=== PATIENT | male | born 1955 | race Hispanic/Latino ===

== ENCOUNTER → 2019-02-17 | Outpatient (CLI) | payer MEDICAID | END | disposition home or self-care (01) | LOC: RAH 11:06 | PROVIDERS: ATTEND Internal Medicine Gastroenterology | DX: B18.2 Chronic viral hepatitis C (principal); I71.4 Abdominal aortic aneurysm, without rupture | CPT/HCPCS: 76700 ==

== ENCOUNTER 2021-02-14 12:00 | Inpatient (IN) | payer MEDICAID ==
[~2021-02-14] VITALS: Ht 170.2 cm; Wt 63.2 kg
[2021-02-18 13:05] LABS: EOSINOPHILS % (AUTO) 3.3 % (0.0-8.0); HEMATOCRIT 32.7 % (42-54); LYMPHOCYTES % (AUTO) 19.8 % (21.0-51.0); MEAN CORPUSCULAR HEMOGLOBIN 26.9 pg (27.0-33.0); MEAN CORPUSCULAR VOLUME 89.8 fL (79-99); MONOCYTES % (AUTO) 9.5 % (3.0-13.0); NEUTROPHILS % (AUTO) 66.1 % (40.0-77.0); PLATELET COUNT (AUTO) 261 K/uL (130-400); RED BLOOD CELL COUNT(AUTO) 3.64 MIL/uL (4.50-6.20); RED CELL DISTRIBUTION WIDTH 15.5 % (11.0-15.5)
[2021-02-18 13:14] LABS: ABG BASE EXCESS -5.9 mmol/L (-2.0-3.0); ABG HCO3 18.4 mmol/L (21.0-28.0); ABG OXYGEN SATURATION 97.8 % (95.0-99.0); ABG PCO2 33 mmHg (35-48)
[2021-02-18 13:16] LABS: INR 1.04 (0.85-1.15); PROTHROMBIN TIME 11.3 SEC (9.6-11.6)
[2021-02-18 13:17] LABS: PARTIAL THROMBOPLASTIN TIME 27.1 SEC (26.3-35.5)
[2021-02-18 13:18] LABS: HEMOGLOBIN A1C 4.5 % (4.0-6.0)
[2021-02-18 13:29] LABS: ALBUMIN 3.2 g/dL (3.5-5.0); BILIRUBIN,TOTAL 0.2 mg/dL (0.2-1.0); POTASSIUM 3.9 mmol/L (3.5-5.1)
[2021-02-18 16:12] VITALS: BP 105/65
[2021-02-18] MEDS ORDERED: AEC81 PO (17:07)
[2021-02-18] MEDS ORDERED: BUPROPION HCL ER PO (17:07)
[2021-02-18] MEDS ORDERED: ATOR20TA65 PO (17:07)
[2021-02-18] MEDS ORDERED: AMLO-257 PO (17:07)
[2021-02-18] MEDS ORDERED: METO25TA6 PO (17:07)
[2021-02-21] VITALS (16 sets, daily range): BP systolic 93–299; BP diastolic 50–297
[2021-02-21] MEDS: CEFAZOLIN SODIUM 1 GM VIAL IVP SCH ×2 (06:00→08:10)
[2021-02-21] MEDS ORDERED: EPINEPHRINE PF 1MG AMP 10 MG in 0.9% NACL 250ML 240 ML IV PRN (06:30)
[2021-02-21] MEDS ORDERED: NOREPINEPHRINE BITARTRATE 8 MG in DEXTROSE 5%-WATER 250 ML IV PRN (06:30)
[2021-02-21] MEDS ORDERED: AMINOCAPROIC ACID 5,000MG VIAL 15,000 MG in 0.9% NACL 500ML IV.SOLN 420 ML IV PRN (06:30)
[2021-02-21] MEDS ORDERED: 0.9%NACL 1000ML 1,000 ML IV ONE ×2 (07:10→07:56)
[2021-02-21] MEDS ORDERED: NOREPINEPHRINE BITARTRATE 1 MG/1 ML ML IV ONE ×2 (07:35→10:32)
[2021-02-21] MEDS ORDERED: ESMOLOL HCL 10 MG/ML 10 ML VIAL ONE ×2 (07:35→07:39)
[2021-02-21] MEDS ORDERED: PROPOFOL 10 MG/ML 20ML VIAL IV ONE (07:35)
[2021-02-21] MEDS ORDERED: EPINEPHRINE PF 1MG AMP ONE (07:35)
[2021-02-21] MEDS ORDERED: SODIUM BICARB 50MEQ 50ML VIAL 150 ML ONE (07:35)
[2021-02-21] MEDS ORDERED: LIDOCAINE PF 100MG/5ML (2%) SYRINGE 5ML ONE (07:35)
[2021-02-21] MEDS ORDERED: PROTAMINE SULFATE 10 MG/ML 25ML VIAL IV ONE (07:35)
[2021-02-21] MEDS ORDERED: FENTANYL CITRATE PF 50 MCG/1 ML 20ML VIAL IJ ONE (07:35)
[2021-02-21] MEDS ORDERED: HEPARIN 10,000 UNIT/10ML (1,000 UNIT/ML) VIAL ONE (07:35)
[2021-02-21] MEDS ORDERED: AMINOCAPROIC ACID 5,000MG VIAL ONE (07:35)
[2021-02-21] MEDS ORDERED: ETOMIDATE 20MG VIAL ONE (07:36)
[2021-02-21] MEDS ORDERED: ROCURONIUM 10MG/1ML SYR 10 MG/ML ML ONE ×2 (07:36→09:45)
[2021-02-21] MEDS ORDERED: AMIODARONE 150MG VIAL ONE (07:39)
[2021-02-21] MEDS ORDERED: NITROGLYCERIN 50MG/D5W 250ML 1 BOT ONE (07:53)
[2021-02-21] MEDS ORDERED: MIDAZOLAM HCL 1 MG/ML 2ML VIAL ONE (08:10)
[2021-02-21] MEDS ORDERED: SODIUM BICARB 50MEQ 50ML VIAL 100 ML ONE (08:25)
[2021-02-21 08:35] LABS: ABG BASE EXCESS -6.7 mmol/L (-2.0-3.0); ABG HCO3 17.9 mmol/L (21.0-28.0); ABG OXYGEN SATURATION 99.7 % (95.0-99.0); ABG PCO2 32 mmHg (35-48)
[2021-02-21] MEDS ORDERED: OCTYL 2-CYANOACRYLATE 1 EACH TP ONE (08:37)
[2021-02-21] MEDS ORDERED: CEFAZOLIN SODIUM 1 GM VIAL ONE ×2 (08:37→12:02)
[2021-02-21] MEDS ORDERED: PAPAVERINE HCL 30 MG/ML 2ML VIAL ONE (08:37)
[2021-02-21] MEDS ORDERED: DELNIDO FORMULA 1 BAG IV ONE (09:12)
[2021-02-21] MEDS ORDERED: HEPARIN 10,000 UNIT VIAL IJ ONE (09:12)
[2021-02-21 09:35] LABS: ABG BASE EXCESS -2.7 mmol/L (-2.0-3.0); ABG HCO3 22.6 mmol/L (21.0-28.0); ABG OXYGEN SATURATION 99.8 % (95.0-99.0); ABG PCO2 41 mmHg (35-48)
[2021-02-21] MEDS ORDERED: SODIUM BICARB 50MEQ 50ML VIAL 200 ML ONE (10:00)
[2021-02-21 10:24] LABS: ABG BASE EXCESS 3.4 mmol/L (-2.0-3.0); ABG OXYGEN SATURATION 99.8 % (95.0-99.0); ABG PCO2 32 mmHg (35-48)
[2021-02-21] MEDS ORDERED: ALBUMIN (HUMAN) 5% 250 ML IV ONE (10:24)
[2021-02-21] MEDS ORDERED: CACL 1GM SYG IVP ONE (10:32)
[2021-02-21] MEDS ORDERED: MAGNESIUM SULFATE 1 GM/2 ML VIAL IM ONE (10:32)
[2021-02-21] MEDS ORDERED: SODIUM BICARB 8.4% 50ML SYRINGE IVP ONE (10:32)
[2021-02-21] MEDS ORDERED: ALBUMIN (HUMAN) 25% 50 ML IV ONE (10:32)
[2021-02-21] MEDS ORDERED: AMINOCAPROIC ACID 5,000MG VIAL IV ONE (10:32)
[2021-02-21] MEDS ORDERED: LIDOCAINE PF 100MG/5ML (2%) SYRINGE 5ML IVP ONE (10:32)
[2021-02-21] MEDS ORDERED: HEPARIN 10,000 UNIT/10ML (1,000 UNIT/ML) VIAL IV ONE (10:32)
[2021-02-21] MEDS ORDERED: MANNITOL 25% 50ML VIAL IV ONE (10:32)
[2021-02-21] MEDS ORDERED: PHENYLEPHRINE HCL 10 MG/ML 1ML VIAL IV ONE (10:32)
[2021-02-21 10:49] LABS: ABG HCO3 23.9 mmol/L (21.0-28.0); ABG OXYGEN SATURATION 99.1 % (95.0-99.0); ABG PCO2 26 mmHg (35-48)
[2021-02-21 11:37] LABS: ABG HCO3 25.8 mmol/L (21.0-28.0); ABG OXYGEN SATURATION 99.2 % (95.0-99.0); ABG PCO2 42 mmHg (35-48)
[2021-02-21] MEDS ORDERED: INSULIN REGULAR, HUMAN 3ML 100 UNIT in 0.9%NACL 100ML 99 ML IV SCH ×2 (12:00)
[2021-02-21] MEDS ORDERED: TRAMADOL HCL 50 MG TABLET PO PRN (12:00)
[2021-02-21] MEDS ORDERED: GLUCAGON 1MG KIT 1 MG ML IM PRN (12:00)
[2021-02-21] MEDS ORDERED: MORPHINE 4 MG SYG IV PRN (12:00)
[2021-02-21] MEDS ORDERED: 0.9%NACL 10ML VIAL IVP PRN (12:00)
[2021-02-21] MEDS ORDERED: POTASSIUM PHOS 15 mMOL+NS250ML 250 ML IV PRN (12:00)
[2021-02-21] MEDS ORDERED: MAGNESIUM 2GM PREMIX 50ML 50 ML IV PRN (12:00)
[2021-02-21] MEDS ORDERED: EPINEPHRINE PF 1MG AMP 10 MG in DEXTROSE 5%-WATER 250 ML IV PRN (12:00)
[2021-02-21] MEDS ORDERED: ACETAMINOPHEN 650 MG SUPPOSITORY RC PRN (12:00)
[2021-02-21] MEDS ORDERED: PROPOFOL 1000 MG/100 ML 100 ML IV PRN (12:00)
[2021-02-21] MEDS ORDERED: MORPHINE 2 MG SYG IV PRN (12:00)
[2021-02-21] MEDS ORDERED: NITROGLYCERIN 50MG/D5W 250ML 250 BOT IV SCH (12:00)
[2021-02-21] MEDS ORDERED: ASPIRIN 81MG CHEW TAB NG ONE (12:00)
[2021-02-21] MEDS ORDERED: NOREPINEPHRIN 4MG/NS 250ML 250 ML IV PRN (12:00)
[2021-02-21] MEDS ORDERED: ALBUMIN (HUMAN) 5% 250 ML IV PRN (12:00)
[2021-02-21] MEDS ORDERED: BUPROPION 150 MG PO SCH (12:00)
[2021-02-21] MEDS ORDERED: 0.9% NACL 500ML IV.SOLN 500 ML IV SCH (12:00)
[2021-02-21] MEDS ORDERED: AMINOCAPROIC ACID 5,000MG VIAL 15,000 MG in 0.9% NACL 250ML 250 ML IV SCH (12:00)
[2021-02-21] MEDS ORDERED: DEXTROSE 50%-WATER 50 ML DISP.SYRIN IV PRN (12:00)
[2021-02-21] MEDS ORDERED: 0.9%NACL 1000ML 1,000 ML IV SCH (12:00)
[2021-02-21 12:18] LABS: ABG BASE EXCESS 2.7 mmol/L (-2.0-3.0); ABG HCO3 25.5 mmol/L (21.0-28.0); ABG OXYGEN SATURATION 99.3 % (95.0-99.0); ABG PCO2 32 mmHg (35-48)
[2021-02-21] MEDS ORDERED: GLYCOPYRROLATE 1 MG/5 ML SYRINGE ONE (12:52)
[2021-02-21 13:29] LABS: ABG OXYGEN SATURATION 74.7 % (95.0-99.0); BASE EXCESS,VENOUS BLOOD GAS 1.8 (-2.0-3.0); HCO3,VENOUS BLOOD GAS 26.4 (21.0-28.0); PCO2,VENOUS BLOOD GAS 41 (35-48); PH,VENOUS BLOOD GAS 7.427 (7.350-7.450)
[2021-02-21 13:34] LABS: ABG BASE EXCESS 0.6 mmol/L (-2.0-3.0); ABG HCO3 24.4 mmol/L (21.0-28.0); ABG OXYGEN SATURATION 98.8 % (95.0-99.0); ABG PCO2 36 mmHg (35-48)
[2021-02-21 13:43] LABS: HEMATOCRIT 26.5 % (42-54); MEAN CORPUSCULAR HEMOGLOBIN 28.2 pg (27.0-33.0); MEAN CORPUSCULAR HGB CONC 32.5 g/dL (32.0-36.0); MEAN CORPUSCULAR VOLUME 86.9 fL (79-99); RED BLOOD CELL COUNT(AUTO) 3.05 MIL/uL (4.50-6.20); RED CELL DISTRIBUTION WIDTH 14.8 % (11.0-15.5); WHITE BLOOD COUNT (AUTO) 7.7 K/uL (4.8-10.8)
[2021-02-21] MEDS: POTASSIUM CHLORIDE 20MEQ/100ML 100 ML IV PRN ×4 (13:48→21:17)
[2021-02-21 13:57] LABS: INR 1.27 (0.85-1.15); PROTHROMBIN TIME 13.5 SEC (9.6-11.6)
[2021-02-21 13:58] LABS: CREATININE 0.9 mg/dL (0.5-1.5); MAGNESIUM 2.6 mg/dL (1.80-2.40); PARTIAL THROMBOPLASTIN TIME 28.7 SEC (26.3-35.5); POTASSIUM 3.6 mmol/L (3.5-5.1)
[2021-02-21] MEDS: CALCIUM GLUC 1GM 1 GM in 0.9%NACL 50ML 50 ML IV PRN ×5 (14:19→23:28)
[2021-02-21 14:38] LABS: ABG BASE EXCESS 0.1 mmol/L (-2.0-3.0); ABG HCO3 23.8 mmol/L (21.0-28.0); ABG OXYGEN SATURATION 98.8 % (95.0-99.0); ABG PCO2 35 mmHg (35-48)
[2021-02-21 15:46] LABS: ABG BASE EXCESS -0.1 mmol/L (-2.0-3.0); ABG HCO3 24.2 mmol/L (21.0-28.0); ABG OXYGEN SATURATION 98.5 % (95.0-99.0); ABG PCO2 38 mmHg (35-48)
[2021-02-21] MEDS ORDERED: ASPIRIN 81MG CHEW TAB ONE (15:58)
[2021-02-21 16:55] LABS: ABG BASE EXCESS -0.9 mmol/L (-2.0-3.0); ABG OXYGEN SATURATION 98.5 % (95.0-99.0); ABG PCO2 41 mmHg (35-48)
[2021-02-21] MEDS ORDERED: CALCIUM GLUC 1GM/10ML VIAL ONE (16:56)
[2021-02-21 18:14] LABS: ABG BASE EXCESS -1.5 mmol/L (-2.0-3.0); ABG OXYGEN SATURATION 98.5 % (95.0-99.0); ABG PCO2 44 mmHg (35-48)
[2021-02-21] MEDS: SODIUM BICARB 50MEQ 50ML VIAL IV PRN ×2 (18:22→21:09)
[2021-02-21 18:55] LABS: HEMATOCRIT 28.1 % (42-54); MEAN CORPUSCULAR HEMOGLOBIN 28.3 pg (27.0-33.0); MEAN CORPUSCULAR VOLUME 88.4 fL (79-99); RED BLOOD CELL COUNT(AUTO) 3.18 MIL/uL (4.50-6.20); RED CELL DISTRIBUTION WIDTH 15.1 % (11.0-15.5); WHITE BLOOD COUNT (AUTO) 13.6 K/uL (4.8-10.8)
[2021-02-21 19:07] LABS: POTASSIUM 4.3 mmol/L (3.5-5.1)
[2021-02-21 19:10] LABS: INR 1.17 (0.85-1.15); PROTHROMBIN TIME 12.6 SEC (9.6-11.6)
[2021-02-21 19:11] LABS: PARTIAL THROMBOPLASTIN TIME 35.8 SEC (26.3-35.5)
[2021-02-21] MEDS: CEFAZOLIN SODIUM 1 GM VIAL IV SCH (19:22)
[2021-02-21 19:42] LABS: ABG BASE EXCESS -0.1 mmol/L (-2.0-3.0); ABG HCO3 26.8 mmol/L (21.0-28.0); ABG OXYGEN SATURATION 98.4 % (95.0-99.0); ABG PCO2 55 mmHg (35-48)
[2021-02-21] MEDS: FAMOTIDINE 20MG VIAL IV SCH (20:15)
[2021-02-21 21:07] LABS: ABG BASE EXCESS -2.9 mmol/L (-2.0-3.0); ABG HCO3 24.3 mmol/L (21.0-28.0); ABG OXYGEN SATURATION 96.3 % (95.0-99.0); ABG PCO2 54 mmHg (35-48)
[2021-02-21] MEDS ORDERED: PHARMACY COMMUNICATION MISC SCH (21:30)
[2021-02-21] MEDS: ATORVASTATIN 40 MG TABLET PO SCH (21:35)
[2021-02-21] MEDS: ACETAMINOPHEN 325 MG TAB PO PRN (21:35)
[2021-02-21 22:07] LABS: ABG HCO3 30.8 mmol/L (21.0-28.0); ABG OXYGEN SATURATION 97.6 % (95.0-99.0); ABG PCO2 52 mmHg (35-48)
[2021-02-21 23:28] LABS: ABG BASE EXCESS 5.1 mmol/L (-2.0-3.0); ABG HCO3 30.8 mmol/L (21.0-28.0); ABG OXYGEN SATURATION 97.2 % (95.0-99.0); ABG PCO2 51 mmHg (35-48)
[2021-02-22] VITALS (24 sets, daily range): BP systolic 105–156; BP diastolic 59–92
[2021-02-22] MEDS: CEFAZOLIN SODIUM 1 GM VIAL IV SCH ×2 (01:22→11:01)
[2021-02-22] MEDS: ONDANSETRON 4MG INJ IV PRN (01:52)
[2021-02-22 02:21] LABS: ABG BASE EXCESS 4.9 mmol/L (-2.0-3.0); ABG HCO3 30.5 mmol/L (21.0-28.0); ABG PCO2 51 mmHg (35-48)
[2021-02-22] MEDS: TRAMADOL HCL 50 MG TABLET PO PRN ×2 (02:24→21:42)
[2021-02-22] MEDS: POTASSIUM CHLORIDE 20MEQ/100ML 100 ML IV PRN (02:35)
[2021-02-22] MEDS: LORAZEPAM 2 MG/ML 1 ML VIAL ONE ×2 (03:12→03:13)
[2021-02-22] MEDS ORDERED: LEVETIRACETAM 500 MG/5 ML SD VIAL IV ONE (03:16)
[2021-02-22] MEDS ORDERED: 0.9%NACL 100ML 100 ML ONE (03:19)
[2021-02-22] MEDS ORDERED: LORAZEPAM 2 MG/ML 1 ML VIAL IVP ONE (03:30)
[2021-02-22 04:36] LABS: HEMATOCRIT 25.9 % (42-54); MEAN CORPUSCULAR HEMOGLOBIN 27.6 pg (27.0-33.0); MEAN CORPUSCULAR HGB CONC 31.7 g/dL (32.0-36.0); MEAN CORPUSCULAR VOLUME 87.2 fL (79-99); RED BLOOD CELL COUNT(AUTO) 2.97 MIL/uL (4.50-6.20); RED CELL DISTRIBUTION WIDTH 15.4 % (11.0-15.5); WHITE BLOOD COUNT (AUTO) 8.5 K/uL (4.8-10.8)
[2021-02-22 04:41] LABS: ABG BASE EXCESS 1.1 mmol/L (-2.0-3.0); ABG HCO3 26.9 mmol/L (21.0-28.0); ABG OXYGEN SATURATION 96.9 % (95.0-99.0); ABG PCO2 48 mmHg (35-48)
[2021-02-22] MEDS ORDERED: CALCIUM GLUC 1GM/10ML VIAL ONE (04:43)
[2021-02-22] MEDS: CALCIUM GLUC 1GM 1 GM in 0.9%NACL 50ML 50 ML IV PRN (04:45)
[2021-02-22 04:47] LABS: INR 1.06 (0.85-1.15); PROTHROMBIN TIME 11.5 SEC (9.6-11.6)
[2021-02-22 04:48] LABS: PARTIAL THROMBOPLASTIN TIME 26.8 SEC (26.3-35.5)
[2021-02-22 04:49] LABS: CREATININE 1.1 mg/dL (0.5-1.5); MAGNESIUM 2.2 mg/dL (1.80-2.40); PHOSPHORUS 4.2 mg/dL (2.5-4.9); POTASSIUM 4.8 mmol/L (3.5-5.1)
[2021-02-22] MEDS ORDERED: PHARMACY COMMUNICATION MISC SCH (06:00)
[2021-02-22] MEDS ORDERED: COMPOUND IV MISC 1 EACH IVSOLN MISC PRN (06:30)
[2021-02-22] MEDS: LEVETIRACETAM 500 MG in 0.9%NACL 100ML 100 ML IV SCH ×2 (07:51→19:38)
[2021-02-22] MEDS: METOPROLOL TARTRATE 25 MG TAB PO SCH ×2 (07:53→20:25)
[2021-02-22] MEDS: ASPIRIN 81 MG EC TAB PO SCH (07:53)
[2021-02-22] MEDS: FAMOTIDINE 20MG VIAL IV SCH ×2 (07:53→20:25)
[2021-02-22] MEDS: LORAZEPAM 1 MG TABLET PO SCH ×2 (07:53→20:26)
[2021-02-22] MEDS: [UNRECOGNIZED DRUG - OTHER] PO SCH ×4 (08:44→21:32)
[2021-02-22] MEDS ORDERED: CEFAZOLIN SODIUM 1 GM VIAL ONE (10:58)
[2021-02-22] MEDS: ACETAMINOPHEN 325 MG TAB PO PRN ×3 (17:15→18:54)
[2021-02-22] MEDS: ATORVASTATIN 40 MG TABLET PO SCH (20:26)
[2021-02-23] VITALS (27 sets, daily range): BP systolic 99–145; BP diastolic 61–90
[2021-02-23] MEDS: ACETAMINOPHEN 325 MG TAB PO PRN (01:36)
[2021-02-23 03:53] LABS: HEMATOCRIT 24.2 % (42-54); MEAN CORPUSCULAR HEMOGLOBIN 27.7 pg (27.0-33.0); MEAN CORPUSCULAR HGB CONC 30.6 g/dL (32.0-36.0); MEAN CORPUSCULAR VOLUME 90.6 fL (79-99); RED BLOOD CELL COUNT(AUTO) 2.67 MIL/uL (4.50-6.20); RED CELL DISTRIBUTION WIDTH 15.5 % (11.0-15.5); WHITE BLOOD COUNT (AUTO) 8.5 K/uL (4.8-10.8)
[2021-02-23 04:07] LABS: MAGNESIUM 1.9 mg/dL (1.80-2.40); POTASSIUM 4.2 mmol/L (3.5-5.1)
[2021-02-23] MEDS: LEVETIRACETAM 500 MG in 0.9%NACL 100ML 100 ML IV SCH ×2 (07:41→21:42)
[2021-02-23] MEDS: ASPIRIN 81 MG EC TAB PO SCH (08:09)
[2021-02-23] MEDS: METOPROLOL TARTRATE 25 MG TAB PO SCH ×2 (08:09→21:42)
[2021-02-23] MEDS: FAMOTIDINE 20MG VIAL IV SCH ×2 (08:09→21:42)
[2021-02-23] MEDS: LORAZEPAM 1 MG TABLET PO SCH ×2 (08:09→21:42)
[2021-02-23] MEDS: ATORVASTATIN 40 MG TABLET PO SCH (21:42)
[2021-02-23] MEDS: [UNRECOGNIZED DRUG - OTHER] PO SCH (22:16)
[2021-02-24] VITALS (7 sets, daily range): BP systolic 121–133; BP diastolic 70–81
[2021-02-24 03:51] LABS: HEMATOCRIT 22.7 % (42-54); MEAN CORPUSCULAR HEMOGLOBIN 27.7 pg (27.0-33.0); MEAN CORPUSCULAR HGB CONC 31.3 g/dL (32.0-36.0); MEAN CORPUSCULAR VOLUME 88.7 fL (79-99); RED BLOOD CELL COUNT(AUTO) 2.56 MIL/uL (4.50-6.20); RED CELL DISTRIBUTION WIDTH 15.6 % (11.0-15.5)
[2021-02-24 04:13] LABS: CREATININE 0.9 mg/dL (0.5-1.5); POTASSIUM 3.7 mmol/L (3.5-5.1)
[2021-02-24] MEDS ORDERED: POTASSIUM CHLORIDE 10% ELIXIR 20 MEQ/15 ML UDCUP ONE (06:16)
[2021-02-24] MEDS: [UNRECOGNIZED DRUG - OTHER] PO SCH ×4 (09:04→21:46)
[2021-02-24] MEDS: LEVETIRACETAM 500 MG in 0.9%NACL 100ML 100 ML IV SCH ×2 (09:59→20:42)
[2021-02-24] MEDS: ENOXAPARIN SODIUM 30 MG/0.3 ML SQ SCH (10:03)
[2021-02-24] MEDS: ASPIRIN 81 MG EC TAB PO SCH (10:03)
[2021-02-24] MEDS: FAMOTIDINE 20MG TAB PO SCH ×2 (10:03→21:46)
[2021-02-24] MEDS: METOPROLOL TARTRATE 25 MG TAB PO SCH ×2 (10:03→21:46)
[2021-02-24] MEDS: ATORVASTATIN 40 MG TABLET PO SCH (21:46)
[2021-02-25 03:00] VITALS: BP 128/64
[2021-02-25 03:34] LABS: HEMATOCRIT 24.4 % (42-54); MEAN CORPUSCULAR HEMOGLOBIN 27.7 pg (27.0-33.0); MEAN CORPUSCULAR HGB CONC 30.7 g/dL (32.0-36.0); PLATELET COUNT (AUTO) 70 K/uL (130-400); RED BLOOD CELL COUNT(AUTO) 2.71 MIL/uL (4.50-6.20); RED CELL DISTRIBUTION WIDTH 15.5 % (11.0-15.5); WHITE BLOOD COUNT (AUTO) 4.3 K/uL (4.8-10.8)
[2021-02-25 03:50] LABS: CREATININE 0.8 mg/dL (0.5-1.5); POTASSIUM 3.5 mmol/L (3.5-5.1)
[2021-02-25 04:02] LABS: PLATELET MORPHOLOGY COMMENT DECREASED
[2021-02-25] MEDS: POTASSIUM CHLORIDE 10% ELIXIR 20 MEQ/15 ML UDCUP PO PRN ×3 (04:22→08:29)
[2021-02-25 08:00] VITALS: BP 130/75
[2021-02-25] MEDS: FAMOTIDINE 20MG TAB PO SCH ×2 (08:29→21:11)
[2021-02-25] MEDS: METOPROLOL TARTRATE 25 MG TAB PO SCH ×2 (08:29→21:10)
[2021-02-25] MEDS: LEVETIRACETAM 500 MG in 0.9%NACL 100ML 100 ML IV SCH (08:39)
[2021-02-25 12:00] VITALS: BP 132/84
[2021-02-25] MEDS ORDERED: DOCUSATE SODIUM 100 MG CAP PO ONE (14:19)
[2021-02-25] MEDS: ASPIRIN 81 MG EC TAB PO SCH (14:24)
[2021-02-25] MEDS: ENOXAPARIN SODIUM 30 MG/0.3 ML SQ SCH (14:24)
[2021-02-25] MEDS: DOCUSATE SODIUM 100 MG CAP PO SCH ×2 (14:30→14:36)
[2021-02-25 16:00] VITALS: BP 141/71
[2021-02-25] MEDS ORDERED: DiphenhydrAMINE HCL 50 MG/ML VIAL IV SCH (21:00)
[2021-02-25 21:08] VITALS: BP 127/83
[2021-02-25] MEDS: ATORVASTATIN 40 MG TABLET PO SCH (21:10)
[2021-02-25] MEDS: LEVETIRACETAM 500 MG TABLET PO SCH (21:10)
[2021-02-26 00:48] VITALS: BP 114/62
[2021-02-26 05:10] VITALS: BP 117/78
[2021-02-26] MEDS: ASPIRIN 81 MG EC TAB PO SCH (08:33)
[2021-02-26] MEDS: FAMOTIDINE 20MG TAB PO SCH (08:33)
[2021-02-26] MEDS: METOPROLOL TARTRATE 25 MG TAB PO SCH (08:33)
[2021-02-26] MEDS: DOCUSATE SODIUM 100 MG CAP PO SCH (08:33)
[2021-02-26] MEDS: ONDANSETRON 4MG INJ IV PRN (08:33)
[2021-02-26] MEDS: ENOXAPARIN SODIUM 30 MG/0.3 ML SQ SCH (08:34)
[2021-02-26] MEDS: LEVETIRACETAM 500 MG TABLET PO SCH (08:34)
[2021-02-26 08:42] VITALS: BP 105/62
[2021-02-26] MEDS ORDERED: LEVE-43 PO (10:52)
[2021-02-26] MEDS ORDERED: FURO20TA6 PO (10:52)
[2021-02-26] MEDS ORDERED: ATOR40TA69 PO (10:52)
== END 2021-02-26 13:35 | disposition home health service (06) | DRG 163 ==
LOC: DAHIP 02-21 05:58 → 2CV 02-21 10:34 → 2CH 02-22 12:57 → 2DH 02-23 22:25
PROVIDERS: ADMIT Thoracic Surgery (Cardiothoracic Vascular Surgery); ATTEND Thoracic Surgery (Cardiothoracic Vascular Surgery)
PROC: 021109W Bypass Coronary Artery, Two Arteries from Aorta with Autologous Venous Tissue, Open Approach (ICD-10-PCS; 2021-02-21)
PROC: 06BQ4ZZ Excision of Left Saphenous Vein, Percutaneous Endoscopic Approach (ICD-10-PCS; 2021-02-21)
PROC: 5A1221Z Performance of Cardiac Output, Continuous (ICD-10-PCS; 2021-02-21)
PROC: 30233N1 Transfusion of Nonautologous Red Blood Cells into Peripheral Vein, Percutaneous Approach (ICD-10-PCS; 2021-02-21)
PROC: 5A09357 Assistance with Respiratory Ventilation, Less than 24 Consecutive Hours, Continuous Positive Airway Pressure (ICD-10-PCS; 2021-02-21)
PROC: 02RF0JZ Replacement of Aortic Valve with Synthetic Substitute, Open Approach (ICD-10-PCS; principal; 2021-02-21 08:00)
PROC: 02100Z9 Bypass Coronary Artery, One Artery from Left Internal Mammary, Open Approach (ICD-10-PCS; 2021-02-21 08:00)
PROC: 5A09357 Assistance with Respiratory Ventilation, Less than 24 Consecutive Hours, Continuous Positive Airway Pressure (ICD-10-PCS; 2021-02-22)
PROC: 05HY33Z Insertion of Infusion Device into Upper Vein, Percutaneous Approach (ICD-10-PCS; 2021-02-22)
DX: I35.0 Nonrheumatic aortic (valve) stenosis (principal); I47.2 Ventricular tachycardia; D69.59 Other secondary thrombocytopenia; G31.2 Degeneration of nervous system due to alcohol; R56.9 Unspecified convulsions; I25.10 Atherosclerotic heart disease of native coronary artery without angina pectoris; E78.5 Hyperlipidemia, unspecified; I10 Essential (primary) hypertension; Z20.822 Contact with and (suspected) exposure to COVID-19; J98.4 Other disorders of lung; E78.00 Pure hypercholesterolemia, unspecified; F10.239 Alcohol dependence with withdrawal, unspecified; Z79.899 Other long term (current) drug therapy
CPT/HCPCS: 36415; 36600; 70450; 71045; 71046; 80048; 80053; 80061; 82435; 82803; 82947; 82948; 83036; 83605; 83735; 84100; 84132; 84295; 85018; 85025; 85027; 85347; 85384; 85610; 85730; 86850; 86900; 86901; 86923; 87635; 93005; 93313; 93318; 93880; 94002; 94010; 94660; 97039; A7048; G0378; J0171; J0282; J0610; J0690; J1200; J1644; J1650; J1815; J1953; J2001; J2060; J2150; J2250; J2370; J2405; J2440; J2704; J2720; J3010; J3475; J3480; J3490; J7030; J7040; J7120; P9016; P9045; P9047

== ENCOUNTER → 2021-11-28 | Outpatient (CLI) | payer MEDICARE ==
[~2021-11-28] MED LIST: AEC81 PO; ATOR40TA69 PO; BUPROPION HCL ER PO; FURO20TA6 PO; LEVE-43 PO; METO25TA6 PO
[2021-11-28 12:13] LABS: BASOPHILS % (AUTO) 0.4 % (0.0-5.0); EOSINOPHILS % (AUTO) 1.4 % (0.0-8.0); HEMATOCRIT 30.9 % (42-54); LYMPHOCYTES % (AUTO) 21.9 % (21.0-51.0); MEAN CORPUSCULAR HEMOGLOBIN 29.2 pg (27.0-33.0); MEAN CORPUSCULAR HGB CONC 32.7 g/dL (32.0-36.0); MEAN CORPUSCULAR VOLUME 89.3 fL (79-99); NEUTROPHILS % (AUTO) 66.1 % (40.0-77.0); PLATELET COUNT (AUTO) 126 K/uL (130-400); RED BLOOD CELL COUNT(AUTO) 3.46 MIL/uL (4.50-6.20); RED CELL DISTRIBUTION WIDTH 15.4 % (11.0-15.5); WHITE BLOOD COUNT (AUTO) 4.9 K/uL (4.8-10.8)
[2021-11-28 12:41] LABS: CREATININE 1.4 mg/dL (0.5-1.5); POTASSIUM 4.5 mmol/L (3.5-5.1)
== END | disposition home or self-care (01) ==
LOC: LAB 09:47
PROVIDERS: ATTEND Internal Medicine Cardiovascular Disease
DX: I10 Essential (primary) hypertension (principal)
CPT/HCPCS: 36415; 80048; 85025

== ENCOUNTER → 2021-12-19 | Outpatient (CLI) | payer MEDICARE | END | disposition home or self-care (01) | LOC: SHCH 15:57 | PROVIDERS: ATTEND Internal Medicine Cardiovascular Disease | DX: I51.7 Cardiomegaly (principal); Z95.2 Presence of prosthetic heart valve; Q67.7 Pectus carinatum | CPT/HCPCS: 93306 ==

== ENCOUNTER → 2022-01-06 | Outpatient (CLI) | payer MEDICARE ==
[~2022-01-06] MED LIST changes: +REGADENOSON 0.4 MG/5 ML PF SYG IVP SCH
== END | disposition home or self-care (01) ==
LOC: OIH 08:22
PROVIDERS: ATTEND Internal Medicine Cardiovascular Disease
DX: R06.02 Shortness of breath (principal); R00.2 Palpitations; R42 Dizziness and giddiness; I35.0 Nonrheumatic aortic (valve) stenosis; I10 Essential (primary) hypertension; F10.10 Alcohol abuse, uncomplicated; K20.90 Esophagitis, unspecified without bleeding; A80.9 Acute poliomyelitis, unspecified; Z95.1 Presence of aortocoronary bypass graft; Z95.2 Presence of prosthetic heart valve; Z79.899 Other long term (current) drug therapy
CPT/HCPCS: 78452; 96374; 93017; J2785; A9500 ×2

== ENCOUNTER → 2024-01-03 | Outpatient (CLI) | payer MEDICARE ==
[~2024-01-03] MED LIST changes: -REGADENOSON 0.4 MG/5 ML PF SYG IVP SCH
== END | disposition home or self-care (01) ==
LOC: SHCH 13:57
PROVIDERS: ATTEND Internal Medicine Cardiovascular Disease
DX: I08.1 Rheumatic disorders of both mitral and tricuspid valves (principal); I11.9 Hypertensive heart disease without heart failure; I25.10 Atherosclerotic heart disease of native coronary artery without angina pectoris; Z95.2 Presence of prosthetic heart valve; Z95.1 Presence of aortocoronary bypass graft
CPT/HCPCS: 93306; 93356

== ENCOUNTER → 2024-01-22 | Outpatient (CLI) | payer MEDICARE ==
[2024-01-22] MEDS: REGADENOSON 0.4 MG/5 ML PF SYG IVP ONE (11:15)
== END | disposition home or self-care (01) ==
LOC: SHCH 08:02
PROVIDERS: ATTEND Internal Medicine Cardiovascular Disease
DX: I25.10 Atherosclerotic heart disease of native coronary artery without angina pectoris (principal)
CPT/HCPCS: 78452; 93017; J2785; A9500 ×2

== ENCOUNTER → 2024-05-23 | Outpatient (CLI) | payer MEDICARE ==
--- NOTE | 2024-05-23 12:19 | HMCIMG ---
MR KNEE RIGHT WO REASON: INTERNAL DERANGEMENT R KNEE COMPARISON: None TECHNIQUE: Routine imaging protocol was performed in the sagittal, axial and coronal plane with T1, proton density, T2 and gradient recalled sequences. FINDINGS: There are normal-appearing menisci. There is no evidence of meniscal tear. Articular cartilage appears preserved throughout. Cruciate and collateral ligaments appear unremarkable. Quadriceps and patellar tendons appear normal. There are no focal osseous lesions. There is no joint effusion. There is marked fatty infiltration of all visible musculature suggesting a component of atrophy. IMPRESSION: 1. Extensive fatty infiltration of all visible musculature consistent with a component of atrophy. 2. Otherwise unremarkable exam, no evidence of internal derangement.
== END | disposition home or self-care (01) ==
LOC: RAH 10:26
PROVIDERS: ATTEND Student in an Organized Health Care Education/Training Program
DX: M23.91 Unspecified internal derangement of right knee (principal)
CPT/HCPCS: 73721

== ENCOUNTER → 2024-06-19 | Outpatient (CLI) | payer MEDICARE ==
[2024-06-19 12:13] LABS: CREATININE 1.5 mg/dL (0.5-1.3); POTASSIUM 4.5 mmol/L (3.5-5.1)
== END | disposition home or self-care (01) ==
LOC: LAB 09:32
PROVIDERS: ATTEND Internal Medicine Cardiovascular Disease
DX: E78.2 Mixed hyperlipidemia (principal)
CPT/HCPCS: 36415; 80048

== ENCOUNTER → 2025-03-11 | Outpatient (CLI) | payer MEDICARE | END | disposition home or self-care (01) | LOC: RESP 12:31 | PROVIDERS: ATTEND Internal Medicine Cardiovascular Disease | DX: R06.02 Shortness of breath (principal) | CPT/HCPCS: 94060 ==